=== PATIENT | male | born 1950 | race Caucasian/White ===

== ENCOUNTER 2019-09-28 13:48 | Emergency (ER) | payer OTHER ==
[~2019-09-28] VITALS: Ht 172.7 cm; Wt 61.2 kg
[2019-09-28] MEDS ORDERED: ALBU90OI INH ×2 (14:01→14:57)
[2019-09-28 14:13] LABS: BASOPHILS ABSOLUTE AUTO 0.07 K/mm3 (0.00-0.23); BASOPHILS PERCENT AUTO 1 % (0-2); EOSINOPHILS ABSOLUTE AUTO 1.15 K/mm3 (0.00-0.68); EOSINOPHILS PERCENT AUTO 13 % (0-6); Hematocrit 44.8 % (37.0-53.0); Hemoglobin 14.6 g/dL (13.5-17.5); IMMATURE GRAN ABSOLUTE AUTO 0.04 K/mm3 (0.00-0.10); IMMATURE GRAN PERCENT AUTO 1 % (0-1); LYMPHOCYTES ABSOLUTE AUTO 1.33 K/mm3 (0.84-5.20); LYMPHOCYTES PERCENT AUTO 15 % (21-46); MONOCYTES ABSOLUTE AUTO 1.05 K/mm3 (0.16-1.47); MONOCYTES PERCENT AUTO 12 % (4-13); Mean Corpuscular HGB 31.3 pg (26.0-34.0); Mean Corpuscular HGB Conc 32.6 g/dL (31.5-36.5); Mean Corpuscular Volume 96 fL (80-100); Mean Platelet Volume 12.3 fL (9.1-12.4); NEUTROPHILS PERCENT AUTO 58 % (41-73); Platelet Count 100 K/mm3 (150-400); RDW Standard Deviation 49.4 fL (35.1-46.3); Red Blood Cell Count 4.67 M/mm3 (4.30-5.90); White Blood Cell Count 8.74 K/mm3 (4.00-11.30)
[2019-09-28 14:31] LABS: Alanine Aminotransfer (ALT/SGP 104 U/L (12-78); Albumin, Blood 3.2 g/dL (3.4-5.0); Albumin/Globulin Ratio 0.5 (0.8-1.8); Alk Phos 186 U/L (50-136); Anion Gap 7 mmol/L (6-16); Aspartate Aminotrans (AST/SGOT 83 U/L (12-37); Bilirubin, Total 0.5 mg/dL (0.1-1.0); Blood Urea Nitrogen 24 mg/dL (8-24); Bun/Creatinine Ratio 24.9 (12.0-20.0); CO2, Blood 24 mmol/L (21-32); Chloride, Blood 104 mmol/L (98-108); Creatinine, Blood 0.96 mg/dL (0.60-1.20); Globulin, Blood 6.1 g/dL (2.2-4.0); Glomerular Filtration Rate >60 (60-); Glucose, Blood 109 mg/dL (70-99); Potassium, Blood 4.3 mmol/L (3.5-5.5); Sodium, Blood 135 mmol/L (136-145); Total Protein, Blood 9.3 g/dL (6.4-8.2); Troponin I <0.015 ng/mL (0.000-0.040)
[2019-09-28] MEDS ORDERED: PRED10 PO (14:57)
== END 2019-09-28 15:15 | disposition home or self-care (01) ==
LOC: ER 13:48
PROVIDERS: Emergency Medicine
DX: J44.1 Chronic obstructive pulmonary disease with (acute) exacerbation (principal); I10 Essential (primary) hypertension; Z91.14 Patient's other noncompliance with medication regimen; Z87.891 Personal history of nicotine dependence; Z79.51 Long term (current) use of inhaled steroids
CPT/HCPCS: 71045; 80053; 84484; 85025; 93005; 93010; 94640; 96374; 96375; 99284-25; J0360; J2930

== ENCOUNTER 2021-06-12 15:30 | Emergency (ER) | payer OTHER ==
[~2021-06-12] VITALS: Ht 172.7 cm; Wt 63.5 kg
[~2021-06-12 15:30] MED LIST: ALBU90OI INH; PRED10 PO
[2021-06-12 16:19] LABS: BASOPHILS ABSOLUTE AUTO 0.03 K/mm3 (0.00-0.23); BASOPHILS PERCENT AUTO 0 % (0-2); EOSINOPHILS ABSOLUTE AUTO 0.01 K/mm3 (0.00-0.68); EOSINOPHILS PERCENT AUTO 0 % (0-6); Hematocrit 34.9 % (37.0-53.0); Hemoglobin 11.3 g/dL (13.5-17.5); IMMATURE GRAN ABSOLUTE AUTO 0.03 K/mm3 (0.00-0.10); IMMATURE GRAN PERCENT AUTO 0 % (0-1); LYMPHOCYTES ABSOLUTE AUTO 1.27 K/mm3 (0.84-5.20); LYMPHOCYTES PERCENT AUTO 15 % (21-46); MONOCYTES ABSOLUTE AUTO 1.02 K/mm3 (0.16-1.47); MONOCYTES PERCENT AUTO 12 % (4-13); Mean Corpuscular HGB 23.5 pg (26.0-34.0); Mean Corpuscular HGB Conc 32.4 g/dL (31.5-36.5); Mean Corpuscular Volume 73 fL (80-100); NEUTROPHILS ABSOLUTE AUTO 6.41 K/mm3 (1.96-9.15); NEUTROPHILS PERCENT AUTO 73 % (41-73); Platelet Count 189 K/mm3 (150-400); RDW Coefficient Variation 19.2 % (11.7-14.2); RDW Standard Deviation 49.9 fL (35.1-46.3); White Blood Cell Count 8.77 K/mm3 (4.00-11.30)
[2021-06-12 16:44] LABS: Albumin, Blood 2.6 g/dL (3.4-5.0); Albumin/Globulin Ratio 0.5 (0.8-1.8); Bilirubin, Total 0.7 mg/dL (0.1-1.0); Bun/Creatinine Ratio 19.7 (12.0-20.0); Calcium, Blood 8.6 mg/dL (8.5-10.1); Creatinine, Blood 1.27 mg/dL (0.60-1.20); Globulin, Blood 5.6 g/dL (2.2-4.0); Potassium, Blood 2.3 mmol/L (3.5-5.5); Total Protein, Blood 8.2 g/dL (6.4-8.2)
[2021-06-12 19:45] LABS: Calcium, Ionized (POC) 1.08 mmol/L (1.10-1.46); Chloride (POC) 87 mmol/L (98-108); Creatinine (POC) 1.4 mg/dL (0.8-1.3); Glucose (ISTAT POC) 110 mg/dL (70-99); Hemoglobin (POC) 11.6 g/dL (13.5-17.5); Potassium (POC) 2.8 mmol/L (3.5-5.5); Sodium (POC) 131 mmol/L (135-148); Total CO2 (POC) 28 mmol/L (21-32)
[2021-06-12] MEDS ORDERED: ALBU90OI INH (19:54)
[2021-06-12] MEDS ORDERED: POTASSIUM CHLO20 ME1 PO (19:54)
== END 2021-06-12 20:31 | disposition home or self-care (01) ==
LOC: ER 15:30
PROVIDERS: Emergency Medicine
DX: E86.0 Dehydration (principal); E87.6 Hypokalemia; E87.1 Hypo-osmolality and hyponatremia; R53.1 Weakness; I10 Essential (primary) hypertension; J44.9 Chronic obstructive pulmonary disease, unspecified; Z79.52 Long term (current) use of systemic steroids
CPT/HCPCS: 36415; 74022; 80047; 80053; 83690; 83735; 85014; 85025; 93005; 93010; 96374; 99285-25; A9270; J3480; J7030

== ENCOUNTER 2021-06-29 10:40 | Emergency (ER) | payer OTHER ==
[~2021-06-29] VITALS: Ht 172.7 cm; Wt 61.2 kg
[~2021-06-29 10:40] MED LIST changes: +POTASSIUM CHLO20 ME1 PO
[2021-06-29] MEDS ORDERED: ACET500 PO (11:28)
[2021-06-29] MEDS ORDERED: LIDO700A20 TOP (11:28)
== END 2021-06-29 11:57 | disposition home or self-care (01) ==
LOC: ER 10:40
DX: G89.29 Other chronic pain (principal); M54.50 Low back pain, unspecified; J44.9 Chronic obstructive pulmonary disease, unspecified; I10 Essential (primary) hypertension; F17.220 Nicotine dependence, chewing tobacco, uncomplicated; Z79.899 Other long term (current) drug therapy
CPT/HCPCS: 72100; 99283-25; A9270

== ENCOUNTER 2021-07-28 12:34 | Inpatient (IN) | payer OTHER ==
[~2021-07-28] VITALS: Ht 172.7 cm; Wt 60.7 kg
[~2021-07-28 12:34] MED LIST changes: +ACET500 PO; +LIDO700A20 TOP
[2021-07-28 14:01] LABS: BASOPHILS ABSOLUTE AUTO 0.01 K/mm3 (0.00-0.23); BASOPHILS PERCENT AUTO 0 % (0-2); EOSINOPHILS ABSOLUTE AUTO 0.07 K/mm3 (0.00-0.68); EOSINOPHILS PERCENT AUTO 1 % (0-6); Hematocrit 35.3 % (37.0-53.0); Hemoglobin 10.6 g/dL (13.5-17.5); IMMATURE GRAN ABSOLUTE AUTO 0.03 K/mm3 (0.00-0.10); IMMATURE GRAN PERCENT AUTO 0 % (0-1); LYMPHOCYTES ABSOLUTE AUTO 0.86 K/mm3 (0.84-5.20); LYMPHOCYTES PERCENT AUTO 11 % (21-46); MONOCYTES ABSOLUTE AUTO 0.72 K/mm3 (0.16-1.47); MONOCYTES PERCENT AUTO 9 % (4-13); Mean Corpuscular HGB 23.5 pg (26.0-34.0); Mean Corpuscular Volume 78 fL (80-100); NEUTROPHILS ABSOLUTE AUTO 6.48 K/mm3 (1.96-9.15); NEUTROPHILS PERCENT AUTO 79 % (41-73); Platelet Count 107 K/mm3 (150-400); RDW Coefficient Variation 23.9 % (11.7-14.2); RDW Standard Deviation 67.7 fL (35.1-46.3); Red Blood Cell Count 4.52 M/mm3 (4.30-5.90); White Blood Cell Count 8.17 K/mm3 (4.00-11.30)
[2021-07-28 14:10] LABS: Mean Platelet Volume 10.8 fL (9.1-12.4)
[2021-07-28 14:26] LABS: Alanine Aminotransfer (ALT/SGP 81 U/L (12-78); Albumin, Blood 1.8 g/dL (3.4-5.0); Albumin/Globulin Ratio 0.4 (0.8-1.8); Alk Phos 221 U/L (50-136); Anion Gap 3 mmol/L (6-16); Aspartate Aminotrans (AST/SGOT 123 U/L (12-37); Bilirubin, Total 0.5 mg/dL (0.1-1.0); Blood Urea Nitrogen 18 mg/dL (8-24); Bun/Creatinine Ratio 25.6 (12.0-20.0); CO2, Blood 31 mmol/L (21-32); Calcium, Blood 8.7 mg/dL (8.5-10.1); Chloride, Blood 107 mmol/L (98-108); Globulin, Blood 5.1 g/dL (2.2-4.0); Glomerular Filtration Rate >60 (60-); Glucose, Blood 112 mg/dL (70-99); Potassium, Blood 3.2 mmol/L (3.5-5.5); Sodium, Blood 141 mmol/L (136-145); Total Protein, Blood 6.9 g/dL (6.4-8.2)
[2021-07-28 14:28] LABS: Troponin I 0.716 ng/mL (0.000-0.040)
[2021-07-28 18:41] LABS: Source, Urine Voided
[2021-07-28 18:54] LABS: Appearance, Urine Clear (Clear); Bilirubin, Urine Neg (Neg); Blood, Urine 1+ (Neg); Color, Urine Amber (P-Yellow); Glucose Qualitative, Urine Neg (Neg); Ketones, Urine Neg (Neg); Leukocyte Esterase, Urine Neg (Neg); Nitrite, Urine Neg (Neg); Protein, Urine 2+ (Neg); Urobilinogen, Urine 2+ (Normal)
[2021-07-28 19:20] LABS: Calcium Oxalate Crystals Mod /hpf; White Blood Cells, Urine 0-2 /hpf (0-5)
[2021-07-28 19:21] LABS: Bacteria Rare /hpf; Red Blood Cells, Urine 0-2 /hpf (0-2); Squamous Epithelial Cells Rare /hpf (Few)
[2021-07-28 19:22] LABS: Mucus Light (0-Heavy)
[2021-07-28 22:03] LABS: U Amphetamine Screen Not Detected; U Barbituate Screen Not Detected; U Benzodiazapine Screen Not Detected; U Buprenorphine Screen Not Detected; U Cannabinoids Screen Not Detected; U Cocaine Screen Not Detected; U Methadone Screen Not Detected; U Methamphetamine Screen Not Detected; U Opiates Screen DETECTED; U Oxycodone Screen Not Detected; U Phencyclidine Screen Not Detected; U Propoxyphene Screen Not Detected
[2021-07-29 12:01] LABS: Influenza A, PCR NEGATIVE (NEGATIVE); Influenza B, PCR NEGATIVE (NEGATIVE); Resp Syncytial Virus, PCR NEGATIVE (NEGATIVE); SARS-Cov-2 (COVID-19) PCR, MMC NEGATIVE (NEGATIVE)
[2021-07-29 12:32] LABS: CHOL/HDL RATIO 2.5; Cholesterol 79 mg/dL (50-200); HDL Cholesterol 31 mg/dL (>39); LDL/HDL RATIO 1.2; Low Density Lipoprotein Chol 36 mg/dL (0-110); Triglycerides 59 mg/dL (30-160); Very Low Density Lipoprot Chol 11 mg/dL (6-32)
--- NOTE | 2021-07-29 17:14 | NUR ---
Mr Erik Spence is a 71 year old male with history of COPD, Hep C , Chronic pain syndrome and hypertension who is admitted with generalized weakness , right intermitent chest pain and shortness of breath. Patient was initially presented at ER with generalized weakness , shortness of breath and could not care for himself. PER ER report he is homeless and currently living in couple's home. ER evaluation shows initial troponin level of 0.716 which trended down to 0.499.HDL 31 and BNP 661.Patient is admitted to medical floor for further evaluation and treatment. During admission assessment, patient is alert and oriented x3 , able to make needs known. c/o right chest pain and low back pain, described pain as sharp.Tylenol was given and it was effective. wheezing noted on biletarl upper lobes , patient was put on 3 L n/c with sp02 at 94%. Bilateral lower extremities edema noted . Multiple sores and skin tear noted on lower extremities. On cardic /tele monitor with sinus tach at 106. Was oriented to room and call light use . Continue to monitor.
--- NOTE | 2021-07-29 17:23 | NUR ---
Echocardiogram completed.
[2021-07-30 05:02] LABS: BASOPHILS ABSOLUTE AUTO 0.01 K/mm3 (0.00-0.23); BASOPHILS PERCENT AUTO 0 % (0-2); EOSINOPHILS ABSOLUTE AUTO 0.07 K/mm3 (0.00-0.68); EOSINOPHILS PERCENT AUTO 2 % (0-6); Hematocrit 30.9 % (37.0-53.0); Hemoglobin 9.4 g/dL (13.5-17.5); IMMATURE GRAN ABSOLUTE AUTO 0.01 K/mm3 (0.00-0.10); IMMATURE GRAN PERCENT AUTO 0 % (0-1); LYMPHOCYTES ABSOLUTE AUTO 0.43 K/mm3 (0.84-5.20); LYMPHOCYTES PERCENT AUTO 11 % (21-46); MONOCYTES ABSOLUTE AUTO 0.46 K/mm3 (0.16-1.47); MONOCYTES PERCENT AUTO 12 % (4-13); Mean Corpuscular HGB 23.7 pg (26.0-34.0); Mean Corpuscular HGB Conc 30.4 g/dL (31.5-36.5); Mean Corpuscular Volume 78 fL (80-100); NEUTROPHILS ABSOLUTE AUTO 2.98 K/mm3 (1.96-9.15); NEUTROPHILS PERCENT AUTO 75 % (41-73); Platelet Count 74 K/mm3 (150-400); RDW Coefficient Variation 23.7 % (11.7-14.2); RDW Standard Deviation 67.9 fL (35.1-46.3); Red Blood Cell Count 3.96 M/mm3 (4.30-5.90); White Blood Cell Count 3.96 K/mm3 (4.00-11.30)
[2021-07-30 05:22] LABS: Anion Gap 1 mmol/L (6-16); Blood Urea Nitrogen 20 mg/dL (8-24); Bun/Creatinine Ratio 21.8 (12.0-20.0); CO2, Blood 30 mmol/L (21-32); Calcium, Blood 8.7 mg/dL (8.5-10.1); Chloride, Blood 113 mmol/L (98-108); Creatinine, Blood 0.92 mg/dL (0.60-1.20); Glomerular Filtration Rate >60 (60-); Glucose, Blood 85 mg/dL (70-99); Magnesium, Blood 1.7 mg/dL (1.6-2.4); Potassium, Blood 4.2 mmol/L (3.5-5.5); Sodium, Blood 144 mmol/L (136-145)
--- NOTE | 2021-07-30 17:38 | NUR ---
Alert and oriented x3 , able to make needs known. Continue on 4 L n/c ,no SOB noted. wheezing noted on bilateral upper lobes.One person assist with ADLs. stress test was done ,please see image section for detail. Vital signs are stable. Bilateral lower extremities edema noted. Bed alarm on and call light within reach. Continue to monitor.
--- NOTE | 2021-07-31 05:07 | NUR ---
SHIFT SUMMARY PT HAD AN UNEVENTFUL NIGHT. DID NOT SLEEP VERY WELL. AWAKE MUCH OF THE NIGHT. PT REMAINED IN BED. REQUESTS TO BE LEFT ALONE MOST OF THE NIGHT, OCCASSIONALLY REFUSING TO HAVE ATTENDS CHANGED. PT APPEARS DECONDITIONED. INCONTINENT. TELMETRY SINUS TACH 102. PT RESTING IN BED. WILL CONTINUE TO MONITOR.
--- NOTE | 2021-07-31 18:41 | NUR ---
Alert and oriented x3 , continue on 2-4 L n/c ,no SOB noted. Wheezing noted on bilateral upper lobes. Continue on tele monitor with sinus tachy 91. One person assist with ADLs. Vital signs are stable. Call appropriately and call light within . Continue to monitor.
[2021-08-01 05:31] LABS: BASOPHILS ABSOLUTE AUTO 0.01 K/mm3 (0.00-0.23); BASOPHILS PERCENT AUTO 0 % (0-2); EOSINOPHILS ABSOLUTE AUTO 0.09 K/mm3 (0.00-0.68); EOSINOPHILS PERCENT AUTO 2 % (0-6); Hematocrit 32.2 % (37.0-53.0); Hemoglobin 9.8 g/dL (13.5-17.5); IMMATURE GRAN ABSOLUTE AUTO 0.03 K/mm3 (0.00-0.10); IMMATURE GRAN PERCENT AUTO 1 % (0-1); LYMPHOCYTES ABSOLUTE AUTO 0.98 K/mm3 (0.84-5.20); LYMPHOCYTES PERCENT AUTO 19 % (21-46); MONOCYTES ABSOLUTE AUTO 0.48 K/mm3 (0.16-1.47); MONOCYTES PERCENT AUTO 9 % (4-13); Mean Corpuscular HGB 23.6 pg (26.0-34.0); Mean Corpuscular HGB Conc 30.4 g/dL (31.5-36.5); Mean Corpuscular Volume 78 fL (80-100); NEUTROPHILS ABSOLUTE AUTO 3.72 K/mm3 (1.96-9.15); NEUTROPHILS PERCENT AUTO 70 % (41-73); Platelet Count 83 K/mm3 (150-400); RDW Coefficient Variation 23.7 % (11.7-14.2); RDW Standard Deviation 66.4 fL (35.1-46.3); Red Blood Cell Count 4.15 M/mm3 (4.30-5.90); White Blood Cell Count 5.31 K/mm3 (4.00-11.30)
--- NOTE | 2021-08-01 06:09 | NUR ---
SHIFT SUMMARY PT AA&OX4. ABLE TO MAKE NEEDS KNOWN.PT HAD 1 UNIT BLOOD TRANSFUSED. PT TOLERATED WELL. PT IS READY TO GO HOME ON HOSPICE THIS AM. PT HAS FLUID RESTRICTION OF 1200CC PER DAY. ADLS PROVIDED, SAFETY MEASURES IN PLACE. WILL CONTINUE TO MONITOR.
[2021-08-01 06:22] LABS: Alanine Aminotransfer (ALT/SGP 64 U/L (12-78); Albumin, Blood 1.6 g/dL (3.4-5.0); Albumin/Globulin Ratio 0.3 (0.8-1.8); Alk Phos 167 U/L (50-136); Anion Gap 4 mmol/L (6-16); Aspartate Aminotrans (AST/SGOT 96 U/L (12-37); Bilirubin, Total 0.5 mg/dL (0.1-1.0); Blood Urea Nitrogen 21 mg/dL (8-24); Bun/Creatinine Ratio 24.9 (12.0-20.0); CO2, Blood 28 mmol/L (21-32); Calcium, Blood 8.5 mg/dL (8.5-10.1); Chloride, Blood 109 mmol/L (98-108); Creatinine, Blood 0.84 mg/dL (0.60-1.20); Ferritin, Serum 79 ng/mL (26-388); Globulin, Blood 4.8 g/dL (2.2-4.0); Glomerular Filtration Rate >60 (60-); Glucose, Blood 92 mg/dL (70-99); Iron Serum 24 ug/dL (65-175); Magnesium, Blood 1.6 mg/dL (1.6-2.4); Sodium, Blood 141 mmol/L (136-145); Total Iron Binding Capacity 300 ug/dL (250-450); Total Protein, Blood 6.4 g/dL (6.4-8.2)
--- NOTE | 2021-08-01 18:14 | NUR ---
Alert and oriented x3 , able to make needs known. one person assist with ADLS. C/O pain, tylenol 650 mg po was given and it was effective. Left hip dressing CDI covered with foam. Continue on tele monitor , pacing at 86. Vital signs are stable. Continue on 4 L n/c , no SOB noted. call appropriately and call light within reach. Continue to monitor.
--- NOTE | 2021-08-02 04:27 | NUR ---
PT IS AA&OX3. ABLE TO MAKE NEEDS KNOWN. NO ACUTE CHANGES ON THIS SHIFT. PT C/O PAIN. TYLENOL 650MG ADMINISTERED WITH GOOD EFFECTS. PT ON 4L O2. COOPERATIVE WITH CARE. ADLS PROVIDED, SAFETY MEASURES IN PLACE. WILL CONTINUE TO MONITOR.
--- NOTE | 2021-08-02 16:19 | NUR ---
Had a long discussion today with pt, about his current health status and living situation. He is currently homeless; living in a tent on a friend's property. This is likely not going to continue to be feasible, as his health has rapidly declined, and he is malnourished. He's unable to get out of bed unassisted at this time, and is declining to work with therapies. We discussed hospice today, and he is on board with this as a plan. He will need to review and update his POLST.
--- NOTE | 2021-08-02 17:48 | NUR ---
Alert and oriented x 3 , vital signs are stable. left hip dressing was changed and the site is CDI.C/O chest pain , tramdol and tylenol were given and it was effective. One person assist with ADLs. Refused PT/OT. Continue on tele monitor, pacing at 90. Hold Am levonox tomorrow 08/03/21 for paracentesis .Call appropriately and call light within reach. Continue to monitor.
[2021-08-03 04:56] LABS: International Normalized Ratio 1.23; Prothrombin Time Results 12.7 Sec (9.7-11.5)
[2021-08-03 05:06] LABS: Albumin, Blood 1.7 g/dL (3.4-5.0); Albumin/Globulin Ratio 0.3 (0.8-1.8); Bilirubin, Total 0.6 mg/dL (0.1-1.0); Bun/Creatinine Ratio 23.4 (12.0-20.0); Calcium, Blood 8.9 mg/dL (8.5-10.1); Creatinine, Blood 1.24 mg/dL (0.60-1.20); Globulin, Blood 5.3 g/dL (2.2-4.0); Potassium, Blood 3.6 mmol/L (3.5-5.5)
[2021-08-03 05:17] LABS: Carcinoembryonic Antigen 1.7 ng/mL (0.0-3.0)
--- NOTE | 2021-08-03 07:22 | NUR ---
PATIENT WAS VERY FIDGETY OVERNIGHT, PULLING OFF TELE WIRES, GOWN AND SCRATCHING AT SKIN. LOTION APPLIED TO SKIN AND DISCUSSION ABOUT THE REASON FOR HIS ANXIETY REVEALED HE WAS PAINFUL IN HIS RIGHT ANTERIOR CHEST AFTER A STRONG COUGHING JAG. HAIR DID THE TRICK. THE MEDICATION WAS GIVEN TWICE OVERNIGHT FOR RELIEF
--- NOTE | 2021-08-03 15:53 | NUR ---
Made a visit to pt today around noon. He was grimacing, with labored breathing. 02 via n/c not in place. Pt is stating, "I can't breath good, can't catch my breath. I turned his 02 up from 2L to 4L, and placed his n/c back into his nares, then checked his 02. Sats are 94% with increased 02. Spoke to pt's bedside nurse and Dr. Marie. Pt was able to catch his breatth. We then reviewed POLST, and filled out an updated form, changing pt's code to DNR. Bedside RN Alfredito gave pt a dose of morphine; and this does help with his air hunger.
--- NOTE | 2021-08-03 17:27 | NUR ---
Awake and restless . Refused paracentesis in the morning. Refused both meals. Tramadol, and Roxanol were given for pain management , it was effective. Ativan 1 mg iv was given and it was effective. Vital signs are stable. Continue on 4 L N/C, SP02 92%, Patient keep removing nasal cannula . Repositioning done every 2 hours. Continue to monitor.
--- NOTE | 2021-08-03 23:30 | NUR ---
PM NOTE PT HAS SLEPT MOST OF THE SHIFT. HE OCCASIONALLY OPENS HIS EYES TO TOUCH AND VERBAL STIMULI BUT QUICKLY FALLS BACK TO SLEEP NO VERBAL RESPONSES FROM PT. VITALS ARE STABLE. NO S/S OF DISTRESS OR PAIN. HS MEDS HELD DUE TO ASPIRATION RISK PT WOULD NOT WAKE UP TO TAKE THEM. PER [facility] RN REPORT VISH CHAPMAN, PT CONDITION HAD DECLINED DURING THE DAY AND HE WAS REFUSING MEDICATIONS, VARIOUS THERAPIES, AND HAD REFUSED A PARACENTESIS. PT REQUESTED HOSPICE. [facility] RN ALSO REPORTS THAT PT JUST BEGAN SLEEPING AND HAD BECOME SOMNOLENT. PALLATIVE CARE CONSULTED ON PT, AND CODE STATUS CHANGED FROM FULL CODE TO DNR. DR. RIZVI AWARE OF PT DECLINING CONDITION HAD DC'D SEVERAL OF HIS MEDICATIONS, ORDERED COMFORT CARE MEDICATIONS AND WAS WORKING ON A HOSPICE REFFERAL. BOTH MATH AND SCIENCE DIVISION CHAIR'S ANALY VIZCAINO AND ZEESHAN LOVE AWARE OF SITUATION WITH PT, AND CURRENT PLAN OF CARE.
--- NOTE | 2021-08-04 02:16 | NUR ---
PT ATTENDS CHANGED, AND FRESH LINENS PROVIDED. THREE STAFF MEMBERS REQUIRED TO HELP TURN PT. PT REPOSITONED WITH PILLOW ON RIGHT SIDE.
--- NOTE | 2021-08-04 03:30 | NUR ---
FINAL DISCHARGE I WENT IN ROOM TO ROUND ON PT AND FOUND THAT PT HAD PASSED. PRIOR TO THAT TIME PT HAD BEEN SLEEPING. CODE STATUS DNR. VERIFIED WITH HIDE GRADER ANALY VIZCAINO. TIME OF 0320. PT WAS REQUESTING HOSPICE YESTERDAY 08/03/21, AND WAS REFUSING CARE. COMFORT CARE MEDICATIONS ORDERED. PALLATIVE CARE WAS CONSULTED AND DR. RIZVI WAS WORKING ON HOSPICE REFFERAL. NURSING RN [facility] KISHOR RYAN AND RELIEF WORKER PHYSICAN DR. BOLANOS NOTIFIED OF PT . PT HAS NO NEXT OF KIN TO NOTIFY. HOME CONTACTED AND WILL BE ARRIVING TO RECEIVE PT. POST MORTEM CARE COMPLETE.
--- NOTE | 2021-08-04 04:42 | NUR ---
HOME CAME TO SOCIAL WORKER ASSISTANT PT AT 0442, FACE SHEET GIVEN.
[2021-08-04 06:09] LABS: HBSAG SCREEN Negative (Negative); HEP B CORE AB, TOT Positive (Negative); HEP C VIRUS AB >11.0 (0.0-0.9)
== END 2021-08-04 03:25 ==
LOC: ER 12:34 → MEDS 07-29 11:41
PROVIDERS: Emergency Medicine; Internal Medicine; ADMIT Internal Medicine
DX: I21.4 Non-ST elevation (NSTEMI) myocardial infarction (principal); E43 Unspecified severe protein-calorie malnutrition; J44.1 Chronic obstructive pulmonary disease with (acute) exacerbation; R64 Cachexia; R18.8 Other ascites; C22.8 Malignant neoplasm of liver, primary, unspecified as to type; E87.6 Hypokalemia; Z20.822 Contact with and (suspected) exposure to COVID-19; D64.9 Anemia, unspecified; Z51.5 Encounter for palliative care; Z59.00 Homelessness unspecified; K74.60 Unspecified cirrhosis of liver; Z68.21 Body mass index [BMI] 21.0-21.9, adult; E83.42 Hypomagnesemia; Z79.899 Other long term (current) drug therapy; F17.210 Nicotine dependence, cigarettes, uncomplicated; G89.4 Chronic pain syndrome; Z90.49 Acquired absence of other specified parts of digestive tract; Z98.890 Other specified postprocedural states; B18.2 Chronic viral hepatitis C
CPT/HCPCS: 0241U; 36415; 71045; 71260; 74177; 78452; 80048; 80053; 80061; 81001; 82378; 82607; 82728; 82746; 83540; 83550; 83735; 83880; 84443; 84484; 85025; 85610; 86301; 86317; 86704; 86708; 86803; 87340; 93005; 93010; 93017; 93306; 94640; 94644; 94760; 96372; 96374; 96376; 97110; 97161; 99285-25; A9270; A9500; C9113; G0378; G0480; J0706; J1650; J2060; J2785; J2916; J2930; J3475; J7030; Q9967